=== PATIENT | female | born 1995 | race Caucasian/White ===

== ENCOUNTER → 2021-12-26 14:30 | Outpatient (BNVA) | payer MEDICAID, SELFPAY | PROVIDERS: PCP Pediatrics; Visit Provider Obstetrics & Gynecology | DX: Z34.92 Encounter for supervision of normal pregnancy, unspecified, second trimester (principal); Z3A.16 16 weeks gestation of pregnancy | CPT/HCPCS: 99202 ==

== ENCOUNTER 2021-12-27 07:55 | Outpatient (REF) | payer MEDICAID, SELFPAY ==
--- NOTE | ~2021-12-27 | US_ITS ---
EXAMINATION: ULTRASOUND OB LIMITED CLINICAL INFORMATION: Cramping. Check size and dates. COMPARISON: None TECHNIQUE: Transabdominal second trimester limited OB ultrasound. Dedicated survey not performed. FINDINGS: There is a single viable intrauterine fetus in transverse position. heart rate is 167 bpm. measurements are concordant. measurements: BPD 3.5 cm suggesting gestational age 16 weeks 6 days. OFD 4.4 cm suggesting gestational age 16 weeks 5 days. Head circumference 12.6 cm suggesting gestational age 16 weeks 3 days. Abdominal circumference 11.8 cm suggesting gestational age 17 weeks 4 days. Femur length measures 2 cm suggesting gestational age 16 weeks 1 day. From today's measurements gestational age is estimated at 16 weeks 6 days with estimated date of delivery of 06/07/2022. Amniotic fluid volume is subjectively normal. There is a posterior placenta. Cervical length is 3.1 cm. The maternal ovaries are normal. No fluid is seen in the maternal pelvis. US/US OB limited IMPRESSION: Single viable intrauterine fetus. From today's measurements, gestational age is estimated at 16 weeks 6 days with estimated date of delivery of 06/07/2022.
== END 2021-12-27 07:56 | disposition home or self-care (01) ==
LOC: HO.US 07:55
PROVIDERS: Visit Provider Obstetrics & Gynecology
DX: O26.892 Other specified pregnancy related conditions, second trimester (principal); R10.9 Unspecified abdominal pain; Z3A.16 16 weeks gestation of pregnancy
CPT/HCPCS: 76815

== ENCOUNTER → 2021-12-31 07:52 | Outpatient (BNVA) | payer MEDICAID, SELFPAY | PROVIDERS: Visit Provider Obstetrics & Gynecology | DX: Z34.92 Encounter for supervision of normal pregnancy, unspecified, second trimester (principal) | CPT/HCPCS: 99212 ==

== ENCOUNTER 2022-01-08 10:52 | Outpatient (REF) | payer MEDICAID, SELFPAY ==
[2022-01-08 12:38] LABS: Hematocrit 31.6 % (37.0-47.0); Hemoglobin 11.3 g/dl (12.0-16.0); Mean Corpuscular HGB Conc 35.8 g/dl (31.0-35.0); Mean Corpuscular Hemoglobin 29.3 pg (27.0-33.0); Mean Corpuscular Volume 81.9 fL (80.0-98.0); Mean Platelet Volume 9.6 fL (9.4-12.3); Platelet Count 253 X10*3/uL (160-400); Red Blood Count 3.86 X10*6/uL (4.20-5.50); Red Cell Distribution Width 13.5 % (11.0-16.0); White Blood Count 10.8 X10*3/uL (4.8-10.8)
[2022-01-08 13:29] LABS: Syphilis Screen Nonreactive (Nonreactive)
[2022-01-08 13:55] LABS: Amphetamine Screen Urine Not Detected (Not Detect); Barbiturates, Urine Not Detected (Not Detect); Benzodiazepines Screen Urine Not Detected (Not Detect); Cannabinoid Screen Urine Not Detected (Not Detect); Cocaine Screen Urine Not Detected (Not Detect); Fentanyl, urine Not Detected (Not Detect); Opiate Screen Urine Not Detected (Not Detect); Phencyclidine Screen Urine Not Detected (Not Detect)
[2022-01-08 17:22] LABS: CT PCR NOT DETECTED (Not Detect.); NG PCR NOT DETECTED (Not Detect.)
[2022-01-09 04:46] LABS: HBsAGNum1 0.83 S/CO (0.00-0.99); HIV AB/AG Nonreactive (Nonreactive); HIV Num 1 0.05 S/CO (0.00-0.99); Hepatitis B Surface Antigen Negative (Negative); ~HepC Num1 0.04 S/CO (0.00-0.79); ~Hepatitis C Antibody Nonreactive (Nonreactive)
[2022-01-09 12:23] LABS: BV Int Neg Control Negative (Negative); BV Int Pos Control Positive (Positive)
[2022-01-10 05:21] LABS: Rubella IgG Antibody <0.90 Index; Varicella IgG Antibody <135.00 index
[2022-01-31 03:46] LABS: HPV 16 RNA NOT DETECTED (NOT DETECTED); HPV mRNA E6/E7 rflx Detected (Not Detected)
== END 2022-01-08 10:53 | disposition home or self-care (01) ==
LOC: HO.LNP 10:52
PROVIDERS: Obstetrics & Gynecology; Visit Provider Advanced Practice Midwife
DX: O99.512 Diseases of the respiratory system complicating pregnancy, second trimester (principal); J45.909 Unspecified asthma, uncomplicated; Z11.3 Encounter for screening for infections with a predominantly sexual mode of transmission; Z3A.18 18 weeks gestation of pregnancy; Z01.84 Encounter for antibody response examination
CPT/HCPCS: 80307; 81003; 81511; 85027; 86762; 86780; 86787; 86803; 86850; 86900; 87086; 87340; 87389; 87480; 87491; 87510; 87591; 87624; 87625; 87660; 88142; 99212

== ENCOUNTER 2022-02-05 08:48 | Outpatient (REF) | payer MEDICAID, SELFPAY ==
[2022-02-15 04:56] LABS: CF Ethnicity NH; Cystic Fibrosis NEGATIVE (NEGATIVE)
== END 2022-02-05 08:49 | disposition home or self-care (01) ==
LOC: HO.LAB 08:48
PROVIDERS: Visit Provider Obstetrics & Gynecology
DX: Z34.92 Encounter for supervision of normal pregnancy, unspecified, second trimester (principal); Z3A.22 22 weeks gestation of pregnancy
CPT/HCPCS: 36415; 81220; 99212

== ENCOUNTER → 2022-03-05 10:41 | Outpatient (BNVA) | payer OTHER, SELFPAY | PROVIDERS: Visit Provider Advanced Practice Midwife | DX: Z34.02 Encounter for supervision of normal first pregnancy, second trimester (principal); Z3A.26 26 weeks gestation of pregnancy | CPT/HCPCS: 99212 ==

== ENCOUNTER 2022-03-12 11:23 | Outpatient (REF) | payer OTHER, SELFPAY ==
[2022-03-12 14:17] LABS: Hematocrit 30.7 % (37.0-47.0); Hemoglobin 10.5 g/dl (12.0-16.0); Mean Corpuscular HGB Conc 34.2 g/dl (31.0-35.0); Mean Corpuscular Volume 84.8 fL (80.0-98.0); Platelet Count 302 X10*3/uL (160-400); Red Blood Count 3.62 X10*6/uL (4.20-5.50); Red Cell Distribution Width 12.8 % (11.0-16.0); White Blood Count 10.4 X10*3/uL (4.8-10.8)
[2022-03-12 14:25] LABS: Glucose 1 Hour PP 50gm Dose 87 mg/dL (60-140)
[2022-03-12 15:15] LABS: Syphilis Screen Nonreactive (Nonreactive)
== END 2022-03-12 11:24 | disposition home or self-care (01) ==
LOC: HO.LAB 11:23
PROVIDERS: PCP Family Medicine; Visit Provider Advanced Practice Midwife
DX: Z34.92 Encounter for supervision of normal pregnancy, unspecified, second trimester (principal); Z20.2 Contact with and (suspected) exposure to infections with a predominantly sexual mode of transmission
CPT/HCPCS: 36415; 82950; 85027; 86780; 86850

== ENCOUNTER → 2022-03-19 10:02 | Outpatient (BNVA) | payer OTHER, SELFPAY | PROVIDERS: PCP Family Medicine; Visit Provider Advanced Practice Midwife | DX: O36.0930 Maternal care for other rhesus isoimmunization, third trimester, not applicable or unspecified (principal); Z67.91 Unspecified blood type, Rh negative; Z3A.28 28 weeks gestation of pregnancy | CPT/HCPCS: 81003; 96372; 99212; J2790 ==

== ENCOUNTER → 2022-04-02 14:52 | Outpatient (BNVA) | payer OTHER, SELFPAY | PROVIDERS: PCP Family Medicine; Visit Provider Advanced Practice Midwife | DX: O99.013 Anemia complicating pregnancy, third trimester (principal); D64.9 Anemia, unspecified; O99.513 Diseases of the respiratory system complicating pregnancy, third trimester; J45.909 Unspecified asthma, uncomplicated; Z3A.30 30 weeks gestation of pregnancy; Z79.899 Other long term (current) drug therapy | CPT/HCPCS: 81003; 99212 ==

== ENCOUNTER → 2022-04-23 09:41 | Outpatient (BNVA) | payer OTHER, SELFPAY | PROVIDERS: PCP Family Medicine; Visit Provider Advanced Practice Midwife | DX: O99.013 Anemia complicating pregnancy, third trimester (principal); D64.9 Anemia, unspecified; O99.513 Diseases of the respiratory system complicating pregnancy, third trimester; J45.909 Unspecified asthma, uncomplicated; Z79.899 Other long term (current) drug therapy; Z3A.33 33 weeks gestation of pregnancy | CPT/HCPCS: 90471; 90715; 99212 ==

== ENCOUNTER → 2022-05-07 07:52 | Outpatient (BNVA) | payer OTHER, SELFPAY | PROVIDERS: PCP Family Medicine; Visit Provider Advanced Practice Midwife | DX: Z34.03 Encounter for supervision of normal first pregnancy, third trimester (principal); Z3A.35 35 weeks gestation of pregnancy | CPT/HCPCS: 99212 ==

== ENCOUNTER 2022-05-14 14:49 | Outpatient (REF) | payer OTHER, SELFPAY | END 2022-05-14 14:50 | disposition home or self-care (01) | LOC: HO.LNP 14:49 | PROVIDERS: PCP Nurse Practitioner Family; Visit Provider Advanced Practice Midwife | DX: Z34.93 Encounter for supervision of normal pregnancy, unspecified, third trimester (principal); Z3A.36 36 weeks gestation of pregnancy | CPT/HCPCS: 81003; 99212 ==

== ENCOUNTER 2022-05-14 15:24 | Outpatient (REF) | payer OTHER, SELFPAY ==
[2022-05-15 06:15] LABS: CT PCR NOT DETECTED (Not Detect.); NG PCR NOT DETECTED (Not Detect.)
[2022-05-16 12:19] LABS: Allergic to Penicillin? No
== END 2022-05-14 15:25 | disposition home or self-care (01) ==
LOC: HO.LAB 15:24
PROVIDERS: Visit Provider Advanced Practice Midwife
DX: Z34.93 Encounter for supervision of normal pregnancy, unspecified, third trimester (principal)
CPT/HCPCS: 0353U; 87150

== ENCOUNTER → 2022-05-21 11:39 | Outpatient (BNVA) | payer OTHER, SELFPAY | PROVIDERS: PCP Nurse Practitioner Family; Visit Provider Advanced Practice Midwife | DX: O99.513 Diseases of the respiratory system complicating pregnancy, third trimester (principal); O36.0930 Maternal care for other rhesus isoimmunization, third trimester, not applicable or unspecified; Z67.31 Type AB blood, Rh negative; Z3A.37 37 weeks gestation of pregnancy | CPT/HCPCS: 81003; 99212 ==

== ENCOUNTER → 2022-05-28 11:19 | Outpatient (BNVA) | payer OTHER, SELFPAY | PROVIDERS: PCP Nurse Practitioner Family; Visit Provider Advanced Practice Midwife | DX: Z34.03 Encounter for supervision of normal first pregnancy, third trimester (principal); Z3A.38 38 weeks gestation of pregnancy | CPT/HCPCS: 81003; 99212 ==

== ENCOUNTER 2023-04-15 16:05 | Outpatient (AMB) | payer OTHER, SELFPAY ==
--- NOTE | 2023-04-15 16:13 | A.OFFPC_ITS ---
Vital Signs 04/15/23 16:16 Height 5 ft 6 in Weight 220 lb 8 oz BMI 35.6 BP 126/76 Blood Pressure Location Rt brachial Position Sitting Respiration 13 Pulse 88 Pulse Source Pulse Oximeter Temp 97.4 F Temp Source Temporal Artery Scan Pulse Oximetry (%) 99 Oxygen Delivery Method Room Air Intake Visit Reasons: Sore throat/swollen glands Intake Note: Patients's symptoms started satur night. Patient states that she has nose congestion as well as right ear pain. Accompanied by: Son Allergies No Known Allergies Allergy (Verified 04/15/23 16:22) Tobacco use date assessed: 04/15/23 Dental Screening Dental Screen Date: 04/15/23 Did you have a dental visit in the last 12 months?: Yes Did you have a dental problem in the last 6 months where you did not have access to dental care?: No Was dental information given to patient?: Patient has dentist HPI HPI Comments History of Present Illness Details 27-year-old female presents with complai nts of sore throat for the past 5 days. She reports associated nasal congestion and nonproductive cough. She notes right ear pain since yesterday. She reports fever of 101 yesterday and the day before. She has been taking Tylenol with some relief. No current fever, chills, body aches, fatigue, or weakness. No sick contact. Patients's symptoms started Satur night. Patient states that she has nose c ongestion as well as right ear pain. [facility] Medical History (Updated 04/15/23 @ 16:36 by Amadou Red CNP) Asthma Surgical History (Updated 04/15/23 @ 16:21 by Latisha Wood MA) No pertinent past surgical history Family History Mother No problems noted. Maternal Grandmother No problems noted. Paternal Grandmother Breast cancer Social History Household Members: Significant Other Housing: House Alcohol intake: former Patient Tobacco Use Status: Never used Tobacco e-Cigarette/Vaping Use: Never Used service: No Current occupational status: unemployed Sexual orientation: Straight/Heterosexual Gender identity: Female Cognitive needs: No Hearing needs: No Vision needs: Yes Female Reproductive History Menstrual Age of Menarche: 16 Questionnaire Thrive Questionnaire Date Thrive assessed: 05/14/22 JAY-7 AMB Questionnaire JAY-7 Date JAY - 7 assessed: 05/14/22 Source: Developed by Drs. Raymundo Lea, Denise Liz, Albino Casillas and colleagues, with an educational virgilio from [employer]. Review of Systems Const Details: Const Denies chills, Denies fatigue, Denies fever(s), Denies headache(s) and Denies weakness ENT Reports as per HPI Card Denies chest pain, Denies lightheadedness, Denies dyspnea and Denies other (Palpitations) Resp Denies cough, Denies dyspnea, Denies wheezing and Denies other ( shortness of breath) GI Denies abdominal pain, Denies melena, Denies hematochezia, Denies change in bowel habits, Denies dyspepsia and Denies nausea Denies hematuria and Denies dysuria Musc Denies abnormal gait, Denies myalgias, Denies arthralgias, Denies numbness and Denies tingling Skin/Breast Denies rash, Denies unusual bruising and Denies wounds Neuro Denies abnormal gait, Denies dizziness, Denies headache(s), Denies memory loss, Denies numbness, Denies Sensory deficit (Neuro), Denies tingling and Denies weakness Psych Denies anxiety, Denies depression, Denies memory loss Endo Denies cold intolerance, Denies fatigue, Denies heat intolerance, Denies polydipsia and Denies polyuria Aller/Immun Denies wheezing Physical exam (Primary Care) Vital Signs: Last Vital Signs Temp 97.4 F 04/15/23 16:16 Pulse 88 04/15/23 16:16 Resp 13 04/15/23 16:16 BP 126/76 04/15/23 16:16 Pulse Ox 99 04/15/23 16:16 Oxygen Delivery Method Room Air 04/15/23 16:16 BMI result Body Mass Index 35.6 Tobacco/Smoking Status: Tobacco use Status Patient Tobacco Use Status Never used Tobacco 04/15/23 16:15 Thrive Assessment: Date of Thrive Assessment Date Thrive assessed 05/14/22 04/15/23 16:15 Const Other: General: no acute distress and well developed Nutritional Appearance: well nourished Orientation/consciousness: patient oriented x3 HENMT Head is normocephalic Bilateral ear canal and TM are normal Nasal turbinates are pink and moist Oropharynx with significant erythema, tonsils are enlarged with some yellow patches, no exudate Sinuses are nontender with palpation No auricular or cervical lymphadenopathy Eyes General: appearance normal, both eyes and all related structures Pupils: Equal, round and reactive pupils present EOM: EOMs intact bilaterally Resp Effort & Inspection: normal respiratory effort Auscultation: clear to auscultation bilaterally Cardio Rate: regular rate Rhythm: regular rhythm Heart sounds: S1 normal heart sound present, S2 normal heart sound present, no gallops, no murmurs and no rubs GI Palpation (GI): No Abdominal aortic bruit present, Soft to palpation, nontender, No hepatosplenomegaly present and No Rebound tenderness present Auscultation: normal bowel sounds General: Yes no CVA tenderness Back/Spine/Pelvis Back: no CVA tenderness Cervical Spine: cervical ROM normal and No Cervical spine tenderness Thoracic/Lumbar Spine: thoraco-lumbar ROM normal, No pain with thoraco-lumbar ROM, No thoracic spinal tenderness and No lumbar spinal tenderness Extrem General: Yes normal to inspection, No edema and No calf tenderness Skin General: warm and dry. Normal skin color. Normal skin turgorl Neuro General: patient oriented x3, gait normal and no focal neuro deficit Cranial nerves: Yes Equal, round and reactive pupils present Cognition (Neuro): normal cognition Gait exam (Neuro): Normal gait present Sensory Exam: No Sensory deficit (Neuro) Psych Appearance: grossly normal Affect: normal affect Attitude: cooperative Thought process: Normal thought process present Assessment and Plan Assessment & Plan (1) Strep pharyngitis: Code(s): J02.0 - Streptococcal pharyngitis Plan: Reports 5 days of sore throat with associated nonproductive cough and nasal congestion. She also reports intermittent right ear pain which started yesterday Oropharynx with significant erythema, tonsils are enlarged with some yellow patches, no exudate Amoxicillin ordered. Take as prescribed May take Tylenol or ibuprofen every 6 hours as needed for pain, fever, discomfort May also gargle with salt water Rest Hydrate well -? Drink plenty of fluids.? Especially water Cannot rule out COVID-19/RSV/Flu infection Nasal swab acquired and will be sent to the lab Return for new or worsening symptoms Verbalized understanding and agreed with treatment plan Orders: Orders SARS-CoV2/FLU/RSV Today J02.0 - Streptococcal pharyngitis Medications: New amoxicillin 875 mg PO Q12H 7 days 14 tabs 0RF Coding Level of Care Code Est Pt Level 3 (94918) Diagnoses Strep pharyngitis J02.0
[2023-04-15 16:16] VITALS: BP 126/76; PULSE 88; RESP 13; TEMP 36.3; O2SAT 99; BMI 35.6
== END 2023-04-15 16:39 | disposition home or self-care (01) ==
PROVIDERS: PCP Nurse Practitioner Family; Visit Provider Nurse Practitioner Family
DX: J02.0 Streptococcal pharyngitis (principal)
CPT/HCPCS: 99213

== ENCOUNTER 2023-04-15 16:36 | Outpatient (REF) | payer OTHER, SELFPAY ==
[2023-04-16 14:54] LABS: Influenza A PCR NEGATIVE (Negative); Influenza B PCR NEGATIVE (Negative); Resp Syncy Virus RNA Qual PCR NEGATIVE (Negative); SARS COV2 PCR INHOUSE NEGATIVE (Negative)
== END 2023-04-15 16:37 | disposition home or self-care (01) ==
LOC: HO.LAB 16:36
PROVIDERS: Visit Provider Nurse Practitioner Family
DX: Z11.52 Encounter for screening for COVID-19 (principal); J02.0 Streptococcal pharyngitis
CPT/HCPCS: 0241U

== ENCOUNTER 2024-06-03 09:05 | Emergency (ER) | payer OTHER, SELFPAY ==
[2024-06-03 09:17] VITALS: BP 143/85; PULSE 80; RESP 18; TEMP 36.6; O2SAT 98; BMI 35.6
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
[2024-06-03] MEDS: Acetaminophen 325 MG TABLET 975 MG PO (10:51)
[2024-06-03] MEDS: Fluorescein Sodium STRIP 1 STRIP EYE-LEFT (10:51)
[2024-06-03] MEDS: Tetracaine HCl/PF 0.5% Oph Sol 4 ML DROPS 1 DROP EYE-LEFT (10:51)
[2024-06-03 12:17] LABS: HCG Quantitative 12 mIU/mL
[2024-06-03 13:21] VITALS: BP 137/83; PULSE 106; RESP 18; O2SAT 100
[2024-06-03 14:28] VITALS: BP 137/83; PULSE 106; RESP 18; TEMP -17.7; TEMP 0; O2SAT 100
== END 2024-06-03 14:28 | disposition home or self-care (01) ==
PROVIDERS: Nurse Practitioner Family; Emergency Provider Emergency Medicine Emergency Medical Services; PCP Nurse Practitioner Family
DX: S13.4XXA Sprain of ligaments of cervical spine, initial encounter (principal); S39.012A Strain of muscle, fascia and tendon of lower back, initial encounter; S05.02XA Injury of conjunctiva and corneal abrasion without foreign body, left eye, initial encounter; M54.2 Cervicalgia; R51.9 Headache, unspecified; V47.5XXA Car driver injured in collision with fixed or stationary object in traffic accident, initial encounter; Y93.89 Activity, other specified; Y92.410 Unspecified street and highway as the place of occurrence of the external cause; Y99.8 Other external cause status
CPT/HCPCS: 36415; 84702; 99283; 99284